=== PATIENT | female | born 1975 | race Caucasian/White ===

== ENCOUNTER 2016-05-17 13:38 | Emergency (ER) | payer OTHER ==
[~2016-05-17] VITALS: Ht 165.1 cm; Wt 54.5 kg
[2016-05-17 13:52] VITALS: BP 132/89; PULSE 103; RESP 20; O2SAT 99
--- NOTE | 2016-05-17 16:20 | ED.REPORT ---
HPI-Rash / Abscess Date of Service May 17, 2016 ED Provider: Renetta Iyer History of Present Illness: infected naval piercing for 2 weeks replaced by self last 2 weeks. up to date. primary care is martin. 10/14 using hydrogen peroxide, lidocaine no help Nursing Notes Stated Complaint: INFECTED NAVAL PIERCING Chief Complaint: Skin Rash/Abscess Nursing Notes Reviewed: Yes Allergies: Coded Allergies: No Known Allergies (Verified Allergy, Unknown, 11/01/14) No Active Prescriptions or Reported Meds General Time Seen by MD: 16:19 Chief Complaint Rash Hx Obtained From: Patient Onset Occurred: More than a week ago... (2 weeks) Symptom Duration: Since onset Past Medical History Past Medical History Denies: Asthma, Diabetes mellitus Past Surgical History Reports: Smoking History Current Every Day Smoker Social History Alcohol Use: "Social" Drug Use: THC Occupation lives with sons, no work or school 05/17/2016 Ambulatory Status Independent Review of Systems Basic Review of Systems : No dysuria, No frequency Psychiatric: Normal thought content Physical Exam Initial Vital Signs Vital Signs (First) Date Time Temp Pulse Resp B/P Pulse Ox O2 Delivery O2 Flow Rate FiO2 05/17/16 13:52 36.6 103 20 132/89 99 Room Air Initial VS: Reviewed, Vital signs normal Head / Eyes: Atraumatic, Normocephalic, PERRL ENT: Mucous membranes moist, Conjunctiva normal, No scleral icterus Neck: Supple, Non-tender, Full range of motion Respiratory: Breath sounds normal, Clear to auscultation, No respiratory distress Cardiovascular: Regular rate & rhythm, Heart sounds normal, Intact distal pulses Abdomen / GI: Soft, Non-tender, No guarding, No rebound, No distention Back: No CVA tenderness Lymphatic: No lymphadenopathy Extremities: Vascular intact, Neuro intact, No swelling, No tenderness Neurologic: Alert, Oriented, Nonfocal Psychiatric: Mood/affect normal, Behavior normal, Normal thought content General/Constitutional: Awake, Alert, No acute distress, Well appearing, Well developed, Well hydrated Color / Condition: Positive: Erythema localized Rash / Lesion Notes: navel piercing in [facility] ENT: Atraumatic, Airway patent, Mucous membranes moist, Pharynx NL Respiratory / Chest: Atraumatic, Breath sounds NL, Breath sounds = bilat Cardiovascular: Heart rate NL, Regular rhythm, Heart sounds NL Procedures Procedure Notes: Area preped with betadine, injected with 1% lido. Able to unscrew the end of the navel piercing and it is removed and placed in sterile container and given to patient. Area washed with saline, covered with bactroban and area outlined, timed and dated. Started on oral antibiotics also. Re-Eval/Medical Decision Med Decision/Clinical Course 41 year old female presents with infected navel piercing. Removed and cleaned. Discussed return to ER precautions. No sign of any abscess or contact dermatitis Discharge & Departure Impression: Primary Impression: Cellulitis Site of cellulitis: trunk Disposition: Home Patient Instructions: Cellulitis (ED) Additional Instructions: The naval piercing has been removed. Do not attempt piercing for at least 3 months. Apply bactroban to the site daily. Make sure this gets wet in the shower. Do not use any soap or anything else on this wound except bactroban and clear water. Start bactrim in the am and pm for 7 days. Use ibuprofen 600 mg up to 3 times a day as needed for pain. Can use hydrocodone 1 at night as needed for severe unrelenting pain. REturn if the redness goes outside the line by more than 1 inch. Follow with primary care as needed. Referrals: Esther Penn PA-C (PCP) EDSupervising Provider for APC: Juan Ramon Moore MD copies to: Esther Penn PA-C, Sue ARNP May 17, 2016 16:20
[2016-05-17] MEDS ORDERED: Mupirocin 2% 22 Gm Ointment TOPICAL ONE (16:40)
[2016-05-17 16:57] VITALS: BP 107/73; PULSE 89; RESP 20; O2SAT 99
== END 2016-05-17 16:58 | disposition home or self-care (01) ==
LOC: SED 13:38
DX: L03.316 Cellulitis of umbilicus (principal); F17.200 Nicotine dependence, unspecified, uncomplicated

== ENCOUNTER 2016-07-24 01:07 | Emergency (ER) | payer SELFPAY ==
[~2016-07-24] VITALS: Ht 165.1 cm; Wt 5.9 kg
[2016-07-24 01:24] VITALS: BP 126/82; PULSE 92; RESP 16; O2SAT 98
[2016-07-24 01:59] LABS: BASOPHILS % (AUTO) 0.5 % (0-3); MONOCYTES % (AUTO) 8.3 % (4-12); Mean Corpuscular Hemoglobin 29.7 pg (27.0-35.0); Mean Corpuscular Volume 88.2 fL (81-100); NEUTROPHILS % (AUTO) 50.8 % (40-74); Platelet Count 269 bil/L (150-400)
[2016-07-24 02:27] LABS: Magnesium 2.1 mg/dL (1.6-2.6)
--- NOTE | 2016-07-24 02:32 | ED.REPORT ---
HPI-Abd Pain F 40 and Over Date of Service July 24, 2016 ED Provider: Lennox Antony MD Pt is a 41 y.o. female who presents to the ED via [facility] for a medical clearance. Pt is c/o severe abdominal pain rated at a 9. She states it is due to an IUD that she has had for 10 years and she is requesting that it be removed. Nursing Notes Stated Complaint: ABDOMINAL PAIN Chief Complaint: Female Abdominal Pain Nursing Notes Reviewed: Yes Allergies: Coded Allergies: No Known Allergies (Verified Allergy, Unknown, 11/01/14) Scheduled Doxycycline Monohyd (Doxycycline Monohyd) 100 Mg Tablet 100 MG PO BID Metronidazole (Flagyl) 500 Mg Tablet 500 MG PO Q8H Scheduled PRN Naproxen (Naprosyn) 500 Mg Tablet 500 MG PO BID PRN PRN For Pain General Time Seen by MD: 02:31 Chief Complaint Abdominal pain, Other (Medical clearance) Hx Obtained From: Patient Arrived By: Ambulance, Police Sudden in Onset?: No Onset Occurred: Onset unknown Location: : Diffuse Quality: Painful Severity: Current: Pain level 9 out of 10 Recent Healthcare: No recent doctor visit, No recent hospitalization Past Medical History Past Medical History Denies Past Surgical History Reports: Smoking History Current Every Day Smoker Social History Alcohol Use: "Social" Drug Use: THC Occupation lives with sons, no work or school 05/17/2016 Ambulatory Status Independent Review of Systems GI: Reports: Abdominal pain Complete sys rev & neg: except as marked. Physical Exam Vital Signs Vital Signs (First) Date Time Temp Pulse Resp B/P Pulse Ox O2 Delivery O2 Flow Rate FiO2 07/24/16 01:24 36.4 92 16 126/82 98 Room Air Initial VS: Reviewed Head / Eyes: Atraumatic, Normocephalic Extremities: Vascular intact, Neuro intact Skin: Warm, Dry, No cyanosis Neurologic: Alert, Oriented, Nonfocal General/Constitutional: Awake, Alert, Well appearing, Well developed, Well hydrated, Well nourished, Not toxic appearing Behavior: Positive: Anxious, Tearful Respiratory / Chest: Atraumatic, Breath sounds NL, Breath sounds = bilat, No respiratory distress Cardiovascular: Heart rate NL, Regular rhythm, Heart sounds NL, Peripheral circulation NL Abdomen: Atraumatic, No distention Tenderness/Guarding/Rebound: Positive: Tender diffuse Female Genitourinary: Dressing Room Porter present, Os closed Vaginal Bleeding / Discharge: Positive: Discharge white Pelvic Exam: Positive: Cervical motion tend..., Negative: IUD present (Unable to visualize threads) Interpretation & Diagnostics Lab Results Interpretation Result Diagram: 07/24/165 07/24/16 0145 Test 07/24/16 01:45 White Blood Count 5.9th/mm3 (3.8-10.1) Red Blood Count 4.75mil/mm3 (3.90-5.20) Hemoglobin 14.1g/dL (12.0-15.6) Hematocrit 41.9% (35.0-46.0) Mean Corpuscular Volume 88.2fL (81-100) Mean Corpuscular Hemoglobin 29.7pg (27.0-35.0) Mean Corpuscular Hemoglobin Concent 33.7% (32.0-37.0) Red Cell Distribution Width 13.1% (12.3-15.4) Platelet Count 269bil/L (150-400) Neutrophils (%) (Auto) 50.8% (40-74) Lymphocytes (%) (Auto) 38.2% (14-46) Monocytes (%) (Auto) 8.3% (4-12) Eosinophils (%) (Auto) 2.0% (0-5) Basophils (%) (Auto) 0.5% (0-3) Hold Urine Received (Received) Sodium Level 140mEq/L (134-144) Potassium Level 4.0mEq/L (3.5-5.2) Chloride Level 104mEq/L (97-108) Carbon Dioxide Level 22mmol/L (18-29) Blood Urea Nitrogen 9mg/dL (6-24) Creatinine 0.58mg/dL (0.57-1.00) Estimat Glomerular Filtration Rate 164mL/min (>59) Glucose Level 97mg/dL (60-99) Calcium Level 9.1mg/dL (8.5-10.1) Magnesium Level 2.1mg/dL (1.6-2.6) Total Bilirubin 0.2mg/dL (0.0-1.2) Aspartate Amino Transf (AST/SGOT) 23U/L (0-50) Alanine Aminotransferase (ALT/SGPT) 17U/L (0-32) Alkaline Phosphatase 57U/L (25-150) Total Protein 8.0g/dL (6.4-8.4) Albumin 4.7g/dL (3.4-5.0) Lipase 64U/L (13-60) Hold [place] Top Tube Received (Received) X-Ray Abdominal Interpretation IMPRESSION: IUD is midline and high. Cannot definitively establish if it is out of uterus Interpretation / Wet Read by: Wet read ED physician CT Abd / Pelvis Interpretation IMPRESSION: IUD appears grossly in adequate position by CT imaging. No signs of appendicitis, diverticulitis, or mechanical small bowel obstruction. Incidental findings above. Please see final report for other non-emergent incidental findings. Radiologist: Carmenza Rai MD Re-Eval/Medical Decision Med Decision/Clinical Course 41-year-old female with abdominal pain and pelvic pain closure to swerve her car and brought her to senior living [facility]. They have arrested her for DUI and presents here for clearance. She states she has been having worsening pelvic pain due to retained IUD for the past ten years, and then an effort to remove it several years ago was unsuccessful, due to strings being inaccessible. She did not follow-up with THIM[employer]PERATOR at that time. She has had some discharge and some increasing pain and wishes to have it out now. The arresting officer initially was hoping for clearance to incarceration, but given the length of time involved in her workup, have declined to retain her. She had a pelvic exam showing no visible string and I was unable to finish anything down with a bayonet forcep. She is slightly tender and moderately enlarged. The IUD appears to be midline but perhaps high on a plain film, but a CT confirms it is within the body of the uterus. She has apparent endometritis with a foreign body in her uterus, and will require removal on a urgent but not emergent basis. She is referred to Dr. Qiu for follow-up from the office. Begun with Rocephin IV, and doxycycline and Flagyl here. Toxin Flagyl to follow for ten days. Naprosyn as needed for pain. Source of Hx: Old records Re-Evaluation/Progress : Time of Eval: 02:54 Re-Evaluation/Progress Note: Pelvic performed with dispensary attendant present. Counseled Regarding: Diagnosis, Lab results, Need for follow-up, When/why to return to ED Discharge & Departure Primary Impression: Endometritis Additional Impressions: IUD infection IUD strings lost Attempted IUD removal, unsuccessful Disposition: Home Discharge Condition All VS Reviewed: Yes Condition: Improved Additional Instructions: The IUD is not outside the uterus. It still needs to come out, and this will need to be done by gynecology. Antibiotics will help to suppress the infection , but they will be unsuccessful without removal of the IUD. Doxycycline twice daily for ten days. Metronidazole three times daily for ten days. Naprosyn twice daily as needed for pain and cramps. Follow-up with gynecology. Call this week for an appointment. Referrals: Esther Penn PA-C (PCP) César Attestation Portions of this note were transcribed by Valeria Fermin. I, Dr. Antony personally performed the history, physical exam and medical decision-making; I reviewed and confirmed the accuracy of the information in the transcribed note. Signed by: César Martinez, 07/24/16 and 0510. copies to: Esther Penn PA-C, Christopher W MD July 24, 2016 02:32 VALERIA FERMIN July 24, 2016 02:40
[2016-07-24 04:56] VITALS: BP 115/67; PULSE 84; RESP 18; O2SAT 96
[2016-07-24] MEDS ORDERED: METR500T PO (05:03)
[2016-07-24] MEDS ORDERED: NAPR500T PO (05:03)
[2016-07-24] MEDS ORDERED: DOXY-232 PO (05:03)
[2016-07-24] MEDS ORDERED: cefTRIAXone Inj 2,000 MG in Dextrose 5% Minibag Plus 50 ML IV ONE (05:05)
[2016-07-24 06:16] VITALS: BP 116/71; PULSE 89; RESP 24; O2SAT 98
--- NOTE | 2016-07-24 09:06 | DRSVH ---
PROCEDURE: CT ABDOMEN AND PELVIS WITH CONTRAST ([id number]) INDICATIONS: poss displaced iud TECHNIQUE: After the administration of intravenous contrast, 5 mm thick sections acquired from the diaphragm to the symphysis. 5 mm coronal and sagittal reformats were acquired. For radiation dose reduction, the following was used: automated exposure control, adjustment of mA and/or kV according to patient siz e. COMPARISON: None. FINDINGS: Image quality: Excellent. ABDOMEN: Lung bases: Lung bases are clear. Heart size is normal. Solid organs: Liver is mildly enlarged. The spleen is normal in size and enhancement. Gallbladder i s unremarkable. Biliary system is non dilated. Pancreas enhances normally. No adrenal nodules. Ki dneys demonstrate normal size and enhancement, without hydronephrosis. Peritoneum and bowel: Bowel loops demonstrate normal wall thickness and caliber. No free fluid or a ir. Nodes and vessels: No retroperitoneal or mesenteric adenopathy by size criteria. Aorta and inferior vena cava are normal in size. Miscellaneous: No ventral hernias. PELVIS: Genitourinary: Bladder wall thickness is normal. IUD is present in appropriate location. Miscellaneous: No inguinal hernias or adenopathy. Bones: No suspicious bony lesions. No vertebral body compression fractures. IMPRESSION: 1. IUD appears to be in adequate position by CT imaging. If further evaluation is required, ultrasoun d is recommended. Dictated by: Delaney Champion M.D. on 07/24/2016 at 9:04 Approved by: Delaney Champion M.D. on 07/24/2016 at 9:05
--- NOTE | 2016-07-24 09:30 | DRSVH ---
PROCEDURE: X-RAY KUB ([id number]) INDICATIONS: possible displaced iud TECHNIQUE: One view of the abdomen acquired. COMPARISON: None. FINDINGS: Surgical changes and devices: IUD is present within the midline of the lower pelvis. Bowel: Bowel gas pattern is normal. Soft tissues: No suspicious abdominal calcifications. Visualized solid organ contours appear normal in size. Bones: No suspicious bony lesions. IMPRESSION: Midline position of IUD within the pelvis. Further evaluation of specific location is req uired, pelvic ultrasound is recommended. Dictated by: Delaney Champion M.D. on 07/24/2016 at 9:28 Approved by: Delaney Champion M.D. on 07/24/2016 at 9:28
== END 2016-07-24 06:18 | disposition home or self-care (01) ==
LOC: EDBD 01:07 → SED 01:07
DX: N71.9 Inflammatory disease of uterus, unspecified (principal); F17.200 Nicotine dependence, unspecified, uncomplicated; Z97.5 Presence of (intrauterine) contraceptive device
CPT/HCPCS: 36415; 74000; 74177; 80053; 81025; 83690; 83735; 85025; 96365; 96372; 99285; J0696; J1885; Q9967

== ENCOUNTER 2016-10-29 19:29 | Emergency (ER) | payer OTHER ==
[~2016-10-29] VITALS: Ht 165.1 cm; Wt 54.5 kg
[~2016-10-29 19:29] MED LIST: DOXY-232 PO; METR500T PO; NAPR500T PO
[2016-10-29 19:52] VITALS: BP 117/78; PULSE 83; RESP 17; O2SAT 96
--- NOTE | 2016-10-29 21:10 | DRSVH ---
PROCEDURE: X-RAY FINGERS, TWO VIEWS LEFT INDICATIONS: Caught in blender operator TECHNIQUE: PA of the left hand, 2 views of the left fifth finger(s) acquired. COMPARISON: None. FINDINGS: Bones: No fractures or dislocations. No suspicious bony lesions. Soft tissues: No suspicious soft tissue calcifications. There is some irregularity of the soft tissu es or a dressing over the dorsal aspect of the proximal phalanx. IMPRESSION: No acute bony abnormalities. Dictated by: Uziel Villasenor M.D. on 10/29/2016 at 21:08 Approved by: Uziel Villasenor M.D. on 10/29/2016 at 21:09
--- NOTE | 2016-10-29 22:24 | ED.REPORT ---
HPI-Hand Prob/Inj Date of Service Oct 29, 2016 ED Provider: Lyndon Blackwood MD Pt is a healthy right hand dominant 41 y/o female presenting to the ED due to left finger 4 and 5 injury. The patient was reaching into a mixing bowel that had a running industrial investigations manager and got her left 4th and 5th digits caught. She now c/o moderate pain over the fingers. Pt denies numbness/weakness. Tdap up to date. Nursing Notes Stated Complaint: LEFT SMALL AND RING FINGER INJURY Chief Complaint: Extremity Trauma Nursing Notes Reviewed: Yes Allergies: Coded Allergies: No Known Allergies (Verified Allergy, Unknown, 11/01/14) Scheduled Doxycycline Monohyd (Doxycycline Monohyd) 100 Mg Tablet 100 MG PO BID Metronidazole (Flagyl) 500 Mg Tablet 500 MG PO Q8H Scheduled PRN Naproxen (Naprosyn) 500 Mg Tablet 500 MG PO BID PRN PRN For Pain General Time Seen by Provider: 22:27 Chief Complaint Finger injury left Hx Obtained From: Patient Arrived By: Walk-in Onset Occurred: 1 - 4 hours ago Symptom Duration: Since onset Progression Since Onset: Constant Quality: Painful Severity: Current: Moderate Severity: Maximum: Moderate Recent Healthcare: No recent hospitalization Similar Sx Previous: No Past Medical History Past Medical History Anxiety Denies Past Surgical History Smoking History Current Every Day Smoker Social History Alcohol Use: "Social" Drug Use: THC Occupation lives with sons, no work or school 05/17/2016 Ambulatory Status Independent Review of Systems Musculoskeletal: Reports: Extremity pain Neurologic: Denies: Numbness, Weakness Complete sys rev & neg: except as marked. Hematologic: Reports Bleeding Physical Exam Initial Vital Signs Vital Signs (First) Date Time Temp Pulse Resp B/P Pulse Ox O2 Delivery O2 Flow Rate FiO2 10/29/16 19:52 37.0 83 17 117/78 96 Room Air Initial VS: Reviewed, Vital signs normal Head / Eyes: Atraumatic, Normocephalic ENT: Mucous membranes moist, Conjunctiva normal Neck: Full range of motion Respiratory: No respiratory distress Cardiovascular: Intact distal pulses Abdomen / GI: No distention Skin: Warm, Dry, No cyanosis Neurologic: Alert, Oriented, Nonfocal Psychiatric: Mood/affect normal, Behavior normal, Normal thought content Wrist / Hand: No deformity, Neurologic intact, Vascular intact Left small finger has an irregularly shaped laceration along the dorsal aspect of the entire length of the proximal phalanx. Exposed intact tendon Sensation intact Full strength with extension General/Constitutional: Awake, Alert, No acute distress, Cooperative, Not toxic appearing Behavior: Positive: Anxious Appearance / Presentation: Positive: Uncomfortable Interpretation & Diagnostics X-Ray Interpretation Xray Interpretation: IMPRESSION: No acute bony abnormalities. Dictated by: Uziel Villasenor M.D. on 10/29/2016 at 21:08 Approved by: Uziel Villasenor M.D. on 10/29/2016 at 21:09 Study Performed: Fingers X-Ray Ordered: Hand left Interpretation / Wet Read by: Interpret - Radiologist Procedures Laceration Management Laceration Management: Complicated lac repair Time: 22:39 Procedure Performed by: ED physician Consent / Setup / Site Prep: Consent from patient, Hand hygiene observed, Stand sterile technique Location of Wound: Along the dorsal aspect of the entire legnth of the proximal phalanx. Wound Length: 3 cm Local Anesthesia: Lidocaine 1% Digital Block: Yes Digit Involved: Little finger left Wound Preparation: Betadine Debridement: None Irrigation: Copious Foreign Body Explore / Removal: Explored for foreign body Undermining / Margins: Flaps aligned Repair Skin: ___ O (5), Nylon # Sutures - Skin: 5 Closure Layers: 1 Suture Technique: Simple Post-Procedure / Complications: Antibiotic oint applied, Dressing applied, No complications, Condition improved, Tolerated procedure well, Patient stable Splint Application - Fx Mgt Splint Application- Fx Mgt: Pain management, no fracture Time: 23:35 Procedure Performed by: ED physician Precise Anatomic Location: Left small finger Type of Immobilization: Aluminum-foam Post-Procedure / Complications: Cap refill normal, Post splint vascular nl, Post splint neuro nl, Condition improved, Tolerated procedure well, Patient stable Splint Post-Applic Eval Extremity Condition: Cap refill < 2 sec, Distal sensation intact, Distal motor Intact, No compartment syndrome Re-Eval/Medical Decision Med Decision/Clinical Course pt given lorazepam 1mg PO for anxiety tonight, has a owner operator tanker truck driver Source of Hx: Old records Re-Evaluation/Progress : Time of Eval: 23:49 Re-Evaluation/Progress Note: Pt rechecked. Informed pt of plan for discharge. Pt understands and agrees with plan for discharge. F/U instructions and RTER warnings given. All questions addressed. Counseled Regarding: Diagnosis, Need for follow-up, When/why to return to ED Discharge & Departure Primary Impression: Finger laceration Encounter type: initial encounter Qualified Code: S61.219A - Laceration without foreign body of unspecified finger without damage to nail, initial encounter Disposition: Home Discharge Condition All VS Reviewed: Yes Condition: Stable Patient Instructions: Acute Wound Care (ED) Additional Instructions: Tonight we sutred a laceration to your left small finger. An xray was done, there was no fracture. Keep the wound clean and covered. Apply antibiotic ointment and change dressing daily. May gently dab it with hydrogen peroxide solution to remove dried blood. After changing the dressing, replace protective splint. May use hydrocodone/APAP one to 2 every 4 hours as needed for pain. Elevating hand should help with pain. Return emergency Department for 3 days for wound check and removal of sutures in about 10 days. Cephalexin 3 times a day for 5 days. Return immediately if having increased pain redness or swelling. Referrals: Esther Penn PA-C (PCP) Scribe Attestation Portions of this note were transcribed by Sigifredo Torres. I, Dr. Blackwood, personally performed the history, physical exam and medical decision-making; I reviewed and confirmed the accuracy of the information in the transcribed note. copies to: Esther Penn PA-C, Donald L MD Oct 29, 2016 22:24 SIGIFREDO TORRES Oct 29, 2016 22:31
[2016-10-29] MEDS ORDERED: LORazepam 1 mg Tablet PO ONE (22:35)
[2016-10-29] MEDS ORDERED: _HYDROcodone/APAP 5-325 mg Tablet PO PRN (23:45)
[2016-10-30] VITALS: BP 111/74; PULSE 81; RESP 17; O2SAT 96
[2016-10-30] MEDS ORDERED: _Cephalexin 500 mg Capsule PO SCH (08:30)
== END 2016-10-30 00:01 | disposition home or self-care (01) ==
LOC: SED 19:29
DX: S61.217A Laceration without foreign body of left little finger without damage to nail, initial encounter (principal); F41.9 Anxiety disorder, unspecified; W29.0XXA Contact with powered kitchen appliance, initial encounter; Y93.G1 Activity, food preparation and clean up; Y99.8 Other external cause status; Y92.010 Kitchen of single-family (private) house as the place of occurrence of the external cause; F17.200 Nicotine dependence, unspecified, uncomplicated; F12.10 Cannabis abuse, uncomplicated

== ENCOUNTER 2016-11-08 16:44 | Emergency (ER) | payer OTHER ==
[~2016-11-08] VITALS: Ht 165.1 cm; Wt 63.6 kg
[2016-11-08 16:51] VITALS: BP 113/79; PULSE 60; RESP 16; O2SAT 100
--- NOTE | 2016-11-08 18:44 | ED.REPORT ---
HPI-Recheck W/B/S Date of Service Nov 08, 2016 ED Provider: Jarred Collado PA-C Loly is not otherwise healthy and right-handed 41-year-old female presents to emergency department for suture removal. She was treated here approximately 10 days ago for a laceration to her left fifth finger. Discharged with prescription of Keflex which the patient reports she has been taking as directed. Patient reports continued improvement. Denies pain, discharge, fever , shaking chills, abdominal pain, vomiting. Nursing Notes Stated Complaint: SUTURE REMOVAL Chief Complaint: Wound Recheck/Suture Removal Nursing Notes Reviewed: Yes Allergies: Coded Allergies: No Known Allergies (Verified Allergy, Unknown, 11/01/14) Scheduled Cephalexin (Cephalexin) 500 Mg Tablet 500 MG PO TID Doxycycline Monohyd (Doxycycline Monohyd) 100 Mg Tablet 100 MG PO BID Metronidazole (Flagyl) 500 Mg Tablet 500 MG PO Q8H Scheduled PRN Naproxen (Naprosyn) 500 Mg Tablet 500 MG PO BID PRN PRN For Pain General Time Seen by Provider: 18:31 Chief Complaint Suture removal Past Medical History Past Medical History Anxiety Denies Past Surgical History Smoking History Current Every Day Smoker Social History Alcohol Use: "Social" Drug Use: THC Occupation lives with sons, no work or school 05/17/2016 Ambulatory Status Independent Review of Systems Review of Systems Note: Negative unless stated otherwise in history of present illness Physical Exam General: Well appearing, well developed, well nourished, no acute distress. Left fifth finger: Minimal tenderness, erythema. No purulent discharge. Wound appears to be healing quite well without dehiscence. Sutures are in place and intact. Head: Atraumatic, normocephalic. Eyes: No scleral icterus or injection. No discharge. Vision grossly intact. ENT: Voice clear, hearing grossly intact. Respiratory: No respiratory distress, no increased work of breathing. Speaks in complete sentences. Skin: Warm and dry. Neurological: Grossly nonfocal. Psychological: alert and oriented. Speech appropriate, linear and logical. Behavior appropriate. Initial Vital Signs Vital Signs (First) Date Time Temp Pulse Resp B/P Pulse Ox O2 Delivery O2 Flow Rate FiO2 11/08/16 16:51 60 16 113/79 100 Room Air Normal, temperature not documented Re-Eval/Medical Decision Med Decision/Clinical Course Otherwise healthy 41-year-old female returns department for reassessment of a laceration on her left fifth finger. This department approximately 10 days ago. Patient reports taking her cephalexin as directed. This wound appears to be healing well, no dehiscence, purulence. Minimal erythema and tenderness. Vital signs are normal. I have minimal concern for infection but provided a prescription for 5 more days of cephalexin out of caution. Sutures are removed by nurse. Advised regarding primary care follow-up, provided emergency return precautions. Patient verbalized understanding of, and consent to, the plan. Discharge & Departure Impression: Primary Impression: Visit for wound check Additional Impression: Visit for suture removal Disposition: Home Discharge Condition All VS Reviewed: Yes Condition: Stable Additional Instructions: Evaluation for wound healing in the emergency department includes intravenous physical examination both which are reassuring that this is healing quite well. I have only minimal concern for infection, and for that reason I have prescribed 5 additional days of cephalexin 500 mg to be taken 3 times a day. Follow-up with your primary care provider if you have any further concerns after 5 days. Return to emergency department for any new or worsening symptoms including increasing redness, swelling, pain or the appearance of pus. Referrals: Esther Penn PA-C (PCP) EDSupervising Provider for APC: Deo Ochoa DO copies to: Esther Penn PA-C, Seth PA-C Nov 08, 2016 18:44
[2016-11-08] MEDS ORDERED: CEPH500T PO (18:45)
[2016-11-08] MEDS ORDERED: Lidocaine 2% 6mL Topical Jelly ONE (18:48)
[2016-11-08 19:35] VITALS: BP 120/74; PULSE 60; RESP 18; O2SAT 100
== END 2016-11-08 19:38 | disposition home or self-care (01) ==
LOC: SED 16:44
DX: S61.217D Laceration without foreign body of left little finger without damage to nail, subsequent encounter (principal); F17.200 Nicotine dependence, unspecified, uncomplicated